=== PATIENT | female | born 1960 | race Caucasian/White ===

== ENCOUNTER 2018-05-03 15:10 | Emergency (ER) | payer MEDICAID, SELFPAY ==
--- NOTE | 2018-05-03 15:10 | DT_ITS ---
This patient was seen during an EMR downtime May 01, 2018 - May 08, 2018. This patient may have a combination of paper and electronic documentation or all paper documentation. All documentation is viewable within the e-chart portion of [facility] [employer] for each patient visit.
--- NOTE | 2018-05-03 17:22 | CT_ITS ---
STUDY: CT ABDOMEN AND PELVIS WITH CONTRAST REASON FOR EXAM: Female, 57 years old. Painless jaundice. RADIATION DOSAGE (If Supplied By Facility): CTDIvol = ( 12.55 ) mGy, DLP = ( 436.18 ) mGycm TECHNIQUE: Transaxial images were obtained from the dome of the diaphragm to the symphysis pubis without oral contrast. 100 ml of Isovue 300 contrast was administered. Sagittal and coronal images were reconstructed. Individualized dose optimization techniques were used for this CT. COMPARISON: Prior comparison studies are not available for review at this time. FINDINGS: The visualized lung bases are unremarkable. The visualized portions of the heart are within normal limits. There are dilated intrahepatic biliary ducts throughout the liver. There appears to be a mass within the antonina this probably causing the obstruction. The mass is difficult to define being somewhat infiltrative. The gallbladder is very distended probably also related to the portal mass. Normal spleen. Normal pancreas. Normal bilateral adrenal glands. Normal right kidney. Normal left kidney. Normal visualized stomach. There is no evidence for dilated bowel, ascites or pneumoperitoneum. There is very little solid stool in the colon with gaseous distention of the colon. There is non-visualization of the appendix. There is mild atherosclerotic calcification of the abdominal aorta, without a demonstrated aneurysm. There is venous distention of the inferior vena cava (IVC). Normal retroperitoneum. Normal urinary bladder. Normal visualized uterus. Normal abdominal wall. Normal osseous structures. CT/Abdomen/Pelvis WITH Contrast IMPRESSION: Dilated intrahepatic biliary ducts and very distended gallbladder secondary to a portal mass and/or lymphadenopathy. Electronically Signed: Julita Tong MD at 2:51 EDT , Service support ,
--- NOTE | 2018-05-03 17:40 | RAD_ITS ---
STUDY: X-RAY CHEST REASON FOR EXAM: Female, 57 years old. Jaundice and abdominal pain TECHNIQUE: PA and lateral views of the chest. COMPARISON: None. FINDINGS: There is nonspecific hyperinflation of the lungs. There are 3, 4 to 5 mm was circumscribed nodules in the right lower lobe suggesting old granulomatous disease and/or summation of shadows. There is no demonstrated pleural abnormality. Normal size heart. Normal mediastinum and gamaliel. Normal visualized pulmonary arteries. Normal visualized aortic arch and descending thoracic aorta. Normal visualized thoracic spine. Normal visualized ribs, clavicles, and shoulders. There is no demonstrated abnormality of the visualized soft tissue structures of the upper abdomen. RAD/Chest PA and Lateral IMPRESSION: Nonspecific hyperinflation of the lungs no evidence of acute focal infiltrate. Electronically Signed: Martha Oliver MD at 13:05 EDT Tel , Service support ,
[2018-05-06 08:14] LABS: BUN 10 mg/dL (7-18); Glucose 103 mg/dL (74-106)
[2018-05-06 08:15] LABS: AST(SGOT) 60 U/L (15-37); Alanine Aminotransfer ALT/SGPT 105 U/L (13-56); Albumin, Serum 3.1 g/dL (3.2-5.0); Alkaline Phosphatase 575 U/L (45-117); Anion Gap 9 (5-15); BUN/Creat Ratio 12.7 RATIO (10-20); Bilirubin, Direct 21.03 mg/dL (0.00-0.30); Calcium,Total 9.5 mg/dL (8.5-10.1); Chloride 106 mmol/L (98-107); Creatinine, Serum 0.79 mg/dL (0.55-1.02); EST Glomerular Filtration Rate 79 mL/min (>60); Est Glom Filt Rate - Afr Amer 96 mL/min (>60); Globulin 4.1 g/dL (2.2-4.2); Lipase 94 U/L (73-393); Potassium 3.4 mmol/L (3.5-5.1); Protein, Total 7.2 g/dL (6.4-8.2); Sodium Level 139 mmol/L (136-145)
[2018-05-06 09:48] LABS: Hematocrit 34.8 % (37-47); Hemoglobin 12.6 g/dl (12.0-15.0); Mean Corp Hgb Conc 36.2 g/gl (32-36); Mean Corpuscular Hgb 31.8 pg (27.0-32.0); Mean Corpuscular Volume 87.9 fL (81-99); RBC Distribution Width CV 16.6 % (11.6-14.6); Red Blood Count 3.96 M/mm3 (4.2-5.4); White Blood Count 6.4 K/mm3 (4.4-11.0)
[2018-05-06 09:49] LABS: Absolute Lymphocyte Count 1.17 X10^3/ul (0.83-4.51); Absolute Neutrophil Count 4.4 X10^3/uL (2.0-7.7); Basophil# 0.05 X10^3/uL; Basophil% 0.8 % (0-1); Eosinophil# 0.14 X10^3/uL; Eosinophils% 2.2 % (0-5); Lymphocyte # 1.17 X10^3/ul (4.0); Lymphocyte % 18.3 % (19-41); Mean Platelet Vol. 11.1 fl (6.2-12.0); Monocyte# 0.64 X10^3/uL; Neutrophil # 4.38 X10^3/uL (2.7-7.7); Neutrophil % 68.5 % (47-70); POSITIVE COUNT NO; POSITIVE DIFFERENTIAL NO; POSITIVE MORPHOLOGY NO; Platelet Count 415 K/mm3 (150-450); RBC Distribution Width SD 51.9 fl (35.1-43.9)
[2018-05-06 11:07] LABS: Color, Urine Orange (Yellow); Glucose, Dipstick NEGATIVE (Normal); Ketone-Dipstick 5 mg/dl (Negative); Leukocyte Esterase-Dipstick 25 /ul (Negative); Nitrite-Dipstick Negative (Negative); Occult Blood-Urine 10 /ul (Negative); Protein-Dipstick 30 mg/dl (Negative); Red Blood Cells-Urine 0-5 SEEN /hpf (0-5); Specific Gravity, Urine 1.015 (1.002-1.030); Squamous Epithelial Cells - UA 0-5 SEEN /hpf (5-10); Urine Bilirubin Dipstick 6 mg/dL (Negative); Urine Clarity Cloudy (Clear); Urine Urobilinogen 4 mg/dl (Normal); White Blood Cells 0-5 SEEN /hpf (0-5)
[2018-05-06 11:08] LABS: Bacteria 1+ /hpf (None Seen); Hyaline Cast 0-5 SEEN /lpf (0-5); Mucous, Urine RARE /hpf (<or=2+)
== END 2018-05-03 19:45 | disposition home or self-care (01) ==
LOC: ED 05-05 09:37
PROVIDERS: Emergency Provider Emergency Medicine; Family Provider Family Medicine; PCP Family Medicine
DX: R17 Unspecified jaundice (principal); K83.1 Obstruction of bile duct; F17.210 Nicotine dependence, cigarettes, uncomplicated
CPT/HCPCS: 36415; 71046; 74177; 80048; 80076; 81001; 83690; 85025; 96360; 96361; 99284; J7030; Q9967; A4216

== ENCOUNTER 2018-07-19 11:45 | Day surgery (SDC) | payer MEDICAID, SELFPAY ==
[2018-07-19 12:18] VITALS: BP 114/57; PULSE 59; RESP 18; TEMP 36.2; O2SAT 100; BMI 19.2
[2018-07-19] MEDS: Bupivacaine Mpf 0.5% 30 ML VIAL (12:59)
[2018-07-19] MEDS: Cefazolin 2 GM in 0.9% Normal Saline 100 ML IV (13:20)
--- NOTE | 2018-07-19 14:26 | PCM.OPRPT ---
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 Insertion of a right IJ Port-A-Cath. 2. Use of fluoroscopy. 3. Use of ultrasound Type of Anesthesia:: MAC Anesthesiologist: Dragan Campbell Special Medications: Ancef 2 g IV ?1 Specimen's removed: None Estimated Blood Loss (mL): < 10 cc Fluids Replaced: 800 cc Description of Procedure: After informed consent was given, the patient was brought to the operating room and placed in the supine position. Appropriate time out protocol was followed. He was then given IV conscious sedation for anesthesia. The patient's right upper chest and neck were then prepped with a surgical skin preparation and sterile surgical drapes were placed. After proper landmarks were ascertained, the skin at the upper right chest area was then infiltrated with 1:1 mixture of 1% lidocaine with epinephrine and 0.5% maricaine-total of 7.5 cc. A needle trocar was then inserted into the right internal jugular vein with ultrasound guidance-multiple vessels were viewed with u/s and the right IJ was chosen-- and there was good aspiration of venous blood. A wire was then threaded into the needle trocar and this was visualized under fluoroscopy to ensure that the wire was in the superior vena cava. Once this was done, then the needle trocar was removed. A small skin samanta was made with an 11 blade knife at the wire entrance site. The dilator with the introducer sheath attached was then placed over the wire into the right internal jugular vein via the Seldinger technique and this was visualized under fluoroscopy. The dilator and sheath were in proper position as visualized by fluoroscopy. A subcutaneous pocket was then created caudad to the catheter insertion site. A transverse skin incision was made after the skin and subcutaneous tissues were infiltrated with local anesthetic. Blunt dissection was then used to create a space large enough for placement of the subcutaneous port. The catheter was then tunneled into the subcutaneous pocket. The wire and dilator were then removed. The catheter was then threaded into the introducer sheath and was positioned with its tip at the junction of the superior vena cava and the right atrium as visualized under fluoroscopy. The excess catheter was transected. The catheter was then attached to the subcutaneous port using manufacturers guidelines. The catheter was flushed with a heparin saline mixture prior to placement. Hemostasis was carefully controlled with electrocautery. The port was sutured to the subcutaneous fascia using 3-0 PDS suture at two sites. The port was then placed in the subcutaneous pocket and the sutures were ligated. The incision were reapproximated with interrupted subdermal 3-0 vicryl sutures. The skin was reapproximated with 3-0 nylon suture in a interrupted fashion. Steristrips were used for reinforcement of the skin closure at IJ insertion site and a sterile opsite dressings were applied. The patient tolerated the procedure well. Implants Used: [employer]Port isp M.R.I. 6 Fr Lot [id number] Grafts/Implants Used: [employer] isp M.R.I. 6 Fr Lot [id number] - Complications none
--- NOTE | 2018-07-19 14:30 | PCM.DC.POR ---
Discharge Diet: No Restrictions May shower in (days): 5 - Please keep port site clean and dry for 5 days okay to get neck incision wet and remove dressing from neck incision tomorrow but keep dressing on port site for 5 days unless chemo was needed during this time. Lifting Restrictions: No lifting greater than 15 pounds for the first week on the right Call your doctor if your incision/area has: Continuous Slow Oozing, Sudden Increased Bleeding, Increased Pain/ Swelling, Increased Redness, Foul Smelling Discharge, Swelling at the incision site Call your doctor if you observe: Fever of 101 or Higher Remove Dressing in (days):: 5 - Keep port incision site clean dry and intact for 5 days and last chemo as needed during this time okay to remove and redressed, okay to remove neck dressing tomorrow. Allergies/Adverse Reactions: Allergies No Known Allergies Allergy (Verified 07/18/18 08:56) Medications to take at Discharge NK [NK] 07/17/18 Primary Care Physician: Care Physician,No Primary [Primary Care Provider] - Test Results: Test results from this visit will be discussed in further detail at your follow-up appointment, if applicable. Please Follow Up With: Beatrice Godinez MD - Call [phone] with any concerns after 5 PM or on the weekends When: Call the office for a follow-up appointment in 10 days for suture removal Proposed Discharge Date: 07/19/18
[2018-07-19 14:35] VITALS: BP 114/57; BP 91/52; PULSE 73; RESP 14; TEMP 36.8; O2SAT 100
[2018-07-19 14:40] VITALS: BP 101/58; BP 114/57; PULSE 69; RESP 14; O2SAT 100
[2018-07-19 14:45] VITALS: BP 114/57; BP 98/62; PULSE 75; RESP 16; O2SAT 100
[2018-07-19 14:51] VITALS: BP 114/57; BP 96/64; PULSE 70; RESP 14; TEMP 36.6; O2SAT 100
[2018-07-19 15:40] VITALS: BP 114/57
== END 2018-07-19 15:44 | disposition home or self-care (01) ==
LOC: SDC 11:46 → AC 11:47
PROVIDERS: Visit Provider Surgery
PROC: (CPT 36571; principal; 2018-07-19 13:00)
DX: C22.1 Intrahepatic bile duct carcinoma (principal); C77.9 Secondary and unspecified malignant neoplasm of lymph node, unspecified; Z45.2 Encounter for adjustment and management of vascular access device; F17.200 Nicotine dependence, unspecified, uncomplicated; R63.4 Abnormal weight loss; Z68.1 Body mass index [BMI] 19.9 or less, adult
CPT/HCPCS: 36571; 76937; 71045; 77001; J7120; C1788

== ENCOUNTER → 2018-07-21 13:32 | Outpatient (CLI) | payer MEDICAID, SELFPAY | PROVIDERS: Visit Provider Internal Medicine Hematology & Oncology | DX: C22.1 Intrahepatic bile duct carcinoma (principal); C77.9 Secondary and unspecified malignant neoplasm of lymph node, unspecified | CPT/HCPCS: 71260; 74177; Q9967; A4216 ==

== ENCOUNTER → 2018-10-20 15:37 | Outpatient (CLI) | payer MEDICAID, OTHER, SELFPAY ==
[2018-10-17 09:59] VITALS: BMI 20.5
--- NOTE | 2018-10-20 15:43 | CT_ITS ---
STUDY: CT ABDOMEN AND PELVIS WITH CONTRAST REASON FOR EXAM: Female, 58 years old. Bile duct cancer. RADIATION DOSAGE (If Supplied By Facility): CTDIvol = ( 9.53 ) mGy, DLP = ( 1271.53 ) mGycm TECHNIQUE: Transaxial images were obtained from the dome of the diaphragm to the symphysis pubis without oral contrast. 100 ml of Isovue 300 contrast was administered. Sagittal and coronal images were reconstructed. Individualized dose optimization techniques were used for this CT. COMPARISON: July 21, 2018 FINDINGS: The visualized lung bases are unremarkable. The visualized portions of the heart are within normal limits. There is stable pneumobilia. There is periportal edema. There is mild fluid inferior to the liver. The gallbladder is not visualized. There is a stent noted in the pancreas extending to the duodenum. Pancreatic duct measures 0.2 cm, similar to the prior study.. Normal spleen. There are small, 0.4 to 0.8 cm, nodular enhancing foci in the anterior aspect of the peritoneum adjacent to fluid with suggestion of regions of peritoneal spread of mass, series 3 images 46/125 through 48/125. Normal bilateral adrenal glands. Normal right kidney. Normal left kidney. Normal visualized stomach. Postoperative changes of loops of small intestine. There are no dilated loops present. Normal colon. There is moderate stool. The appendix is visualized and appears normal. There is diffuse atherosclerotic calcification of the abdominal aorta, without a demonstrated aneurysm. Normal inferior vena cava. Normal retroperitoneum. Normal urinary bladder. Normal visualized uterus. Postoperative changes of the abdominal wall. Normal osseous structures. CT/Abdomen/Pelvis W IV Cont ONLY IMPRESSION: Stable postoperative changes with pneumobilia. No dilated loops of bowel. There is periportal edema with fluid in the subhepatic region. Small soft tissue nodular masses with possible peritoneal carcinomatosis. Consider PET scan for further evaluation. Electronically Signed: Antonio Robles MD at 8:46 EST , Service support ,
--- NOTE | 2018-10-20 15:43 | CT_ITS ---
STUDY: CT CHEST WITH CONTRAST REASON FOR EXAM: Female, 58 years old. History of bile duct cancer RADIATION DOSAGE (If Supplied By Facility): CTDIvol = ( 9.53 ) mGy, DLP = ( 1271.53 ) mGycm TECHNIQUE: Transaxial imaging was performed following intravenous administration of 100 ml of Isovue 300 contrast material. Multiplanar coronal and sagittal images were reformatted. Individualized dose optimization techniques were used for this CT. COMPARISON: July 21, 2018 FINDINGS: There is port on the right extending to the superior vena cava. There are mild fibrotic densities about the periphery of the lungs. There is no dominant mass or infiltrate. There is no demonstrated pleural abnormality. There are calcifications of the coronary arteries. Normal mediastinum. Normal hilar regions. Normal enhanced pulmonary arteries. There is atherosclerotic calcification of the aortic arch . Normal osseous structures. There is stable pneumobilia noted in the right upper quadrant. CT/Chest WITH Contrast IMPRESSION: No acute cardiopulmonary disease. Stable appearance. Electronically Signed: Antonio Robles MD at 8:33 EST , Service support ,
== END ==
PROVIDERS: Referring Provider Internal Medicine Hematology & Oncology; Visit Provider Internal Medicine Hematology & Oncology
DX: C22.1 Intrahepatic bile duct carcinoma (principal); C25.9 Malignant neoplasm of pancreas, unspecified
CPT/HCPCS: 71260; 74177; Q9967

== ENCOUNTER → 2019-02-27 13:49 | Outpatient (CLI) | payer OTHER, SELFPAY ==
[2019-02-19 10:20] VITALS: BMI 20.5
--- NOTE | 2019-02-27 13:56 | CT_ITS ---
STUDY: CT CHEST WITH CONTRAST REASON FOR EXAM: Female, 58 years old. Restaging of cholangiocarcinoma. Prior cholecystectomy. RADIATION DOSAGE (If Supplied By Facility): CTDIvol = ( ) mGy, DLP = ( 674 ) mGycm TECHNIQUE: Transaxial imaging was performed following intravenous administration of 100ML IV Isovue 300. Sagittal and coronal 2-D MPR. Individualized dose optimization techniques were used for this CT. COMPARISON: CT chest 10/20/2018. FINDINGS: Supraclavicular: Normal. Body wall soft tissues: Normal. Osseous structures: No acute process. Mediastinum: Normal esophagus. No mass or lymphadenopathy. Aorta: Nondilated, minimal arch atherosclerosis. Pulmonary arteries: Normal. Heart: No cardiomegaly or pericardial effusion. Minimal coronary calcifications proximal LAD. Lungs: No acute process. Details of the upper abdomen are contained within the CT abdomen and pelvis report dictated today. CT/Chest WITH Contrast IMPRESSION: No acute thoracic abnormality is evident. Electronically Signed: Basil Keen MD at 16:37 EDT Tel , Service support ,
--- NOTE | 2019-02-27 13:57 | CT_ITS ---
STUDY: CT ABDOMEN AND PELVIS WITH CONTRAST REASON FOR EXAM: Female, 58 years old. Restaging cholangiocarcinoma. Cholecystectomy. RADIATION DOSAGE (If Supplied By Facility): CTDIvol = ( 8.96 ) mGy, DLP = ( 673.85 ) mGycm TECHNIQUE: Transaxial images were obtained from the dome of the diaphragm to the symphysis pubis with oral contrast. 100ML ml of Isovue 300 contrast was administered. Sagittal and coronal images were reconstructed. Individualized dose optimization techniques were used for this CT. COMPARISON: CT chest same date, CT chest 10/20/[address] abdomen and pelvis 10/20/2018, 07/24/2018, 07/21/2018. FINDINGS: Body wall soft tissues: No acute process. Osseous structures: No acute process. Inferior chest: No acute process. Hepatobiliary: Intrahepatic biliary ductal ectasia and pneumobilia, stable pattern compared to prior imaging of September 2018. Minimal edema within the portal triads. Mild induration of the fat of the gallbladder fossa. The gallbladder surgically absent. The hepatic duct and common bile duct are barely visible, nondilated. There is no defined mass within the liver or along the course of the biliary tree. Pancreas: Pancreatic duct stent. Minimal ductal ectasia of the pancreatic body and tail. No suspicious pancreatic lesion. Spleen: Normal. Adrenal glands: Normal. Urogenital: Normal kidneys with symmetric nephrograms. There is no left hydronephrosis or hydroureter. There is mild chronic-appearing ectasia of the right renal calyces, collecting system and proximal ureter. There is no visible obstructing lesion along the course of the right ureter. No evidence of calculus. Unremarkable urinary bladder. Uterus. No adnexal mass or cyst. Small amount of low density cul-de-sac free fluid. Pelvic floor and sidewalls and retroperitoneum: No mass or adenopathy. Vasculature: Mild atherosclerosis. Normal appearance of iliac veins, IVC, portal venous and mesenteric venous arborization, splenic vein. Stomach: No acute process. Small bowel and mesentery: No acute process. Large bowel: The appendix is not clearly visualized. There are no acute inflammatory features in the region of the cecum. There is a moderate distributed stool burden of the large bowel which may reflect mild constipation. There is mild circumferential thickening of the wall of the mid to distal sigmoid colon without acute inflammation of the surrounding fat, likely chronic. Normal rectum. Peritoneal wall, omentum, mesentery: Line just anterior to the hepatic flexure and proximal transverse colon, a few tiny enhancing nodular foci are present, probably within the omental fat but these directly abut the peritoneal wall. These have diminished in size and conspicuity compared to prior imaging. No new lesions are apparent. Free fluid or free air: Minimal free fluid in the deep pelvis. No generalized ascites. No free air. CT/Abdomen/Pelvis WITH Contrast IMPRESSION: Stable postsurgical changes. Tiny nodular opacities likely within the omentum adjacent to the transverse colon and hepatic flexure has diminished in size and conspicuity compared to prior imaging. No new mass or lymphadenopathy is apparent. There is mild right hydronephrosis and hydroureter of the proximal 3rd of the ureter. This has chronic features. The nephrograms are symmetric with no evidence of congestion of the right kidney. The point of transition into a nondilated ureter lies near the location of the ureteral traverse beneath and medial to the gonadal vein overlying the psoas muscle. Therefore the appearance of mild hydronephrosis may be associated with acute normal urine bolus at the time of the CT study. No suspicious ureteral lesion or calculus is evident. Electronically Signed: Basil Keen MD at 16:19 EDT Tel , Service support ,
== END ==
PROVIDERS: Referring Provider Nurse Practitioner Family; Visit Provider Nurse Practitioner Family
DX: C22.1 Intrahepatic bile duct carcinoma (principal); Z90.49 Acquired absence of other specified parts of digestive tract
CPT/HCPCS: 71260; 74177; Q9967

== ENCOUNTER → 2019-07-16 | Outpatient (CLI) | payer OTHER, SELFPAY ==
[2019-06-25 09:50] VITALS: BMI 23.0
[2019-07-09 09:46] VITALS: BMI 23.3
--- NOTE | 2019-07-16 13:32 | CT_ITS ---
STUDY: CT CHEST WITH CONTRAST REASON FOR EXAM: Female, 59 years old. Bile duct CA RADIATION DOSAGE (If Supplied By Facility): CTDIvol = ( 9.98 ) mGy, DLP = ( 648.68 ) mGycm TECHNIQUE: Transaxial imaging was performed following intravenous administration of 100 IV Isovue 300. Individualized dose optimization techniques were used for this CT. COMPARISON: None. FINDINGS: Bilateral pleural effusions with basilar atelectasis. There is no demonstrated pleural abnormality. Normal heart and pericardium. Subcentimeter nodes in the mediastinum. Normal hilar regions. Normal enhanced pulmonary arteries. Normal aorta arch and descending thoracic aorta. Normal osseous structures. Pneumobilia. CT/Chest WITH Contrast IMPRESSION: Bilateral pleural effusions with basilar atelectasis. Subcentimeter mediastinal nodes. Electronically Signed: Luis Alberto Rosales DO at 19:43 EDT Tel [phone], Service support ,
--- NOTE | 2019-07-16 13:32 | CT_ITS ---
STUDY: CT ABDOMEN AND PELVIS WITH CONTRAST REASON FOR EXAM: Female, 59 years old. Bile ducts CA RADIATION DOSAGE (If Supplied By Facility): CTDIvol = ( 9.98 ) mGy, DLP = ( 648.68 ) mGycm TECHNIQUE: Transaxial images were obtained from the dome of the diaphragm to the symphysis pubis without oral contrast. 100 IV Isovue 300 was administered. Sagittal and coronal images were reconstructed. Individualized dose optimization techniques were used for this CT. COMPARISON: None. FINDINGS: Pneumobilia in the liver. Nonvisualization of the gallbladder. No significant dilatation of the extrahepatic biliary system. Normal spleen. There is a pancreatic ductal stent in the pancreas. Borderline pancreatic ductal prominence. Normal bilateral adrenal glands. Normal right kidney. Normal left kidney. Normal visualized stomach. Focal wall thickening of the small intestine in the right upper quadrant. Normal colon. The appendix is nonvisualized. Calcified abdominal aorta. Normal inferior vena cava. Normal retroperitoneum. Mesenteric thickening is noted diffusely. Normal urinary bladder. There is moderate pelvic free fluid. There is a 2.5 cm thick wall left adnexal cystic lesion. Normal abdominal wall. Normal osseous structures. CT/Abdomen/Pelvis W IV Cont ONLY IMPRESSION: Focal wall thickening of a small bowel loop in the right upper quadrant. Mesenteric thickening diffusely. Moderate pelvic fluid. Thick-walled left adnexal cystic nodule. Pneumobilia. Pancreatic ductal stent. Borderline pancreatic ductal prominence. Electronically Signed: Luis Alberto Rosales DO at 20:31 EDT Tel [phone], Service support ,
== END | disposition home or self-care (01) ==
LOC: CT 13:24
PROVIDERS: Referring Provider Internal Medicine Hematology & Oncology; Visit Provider Internal Medicine Hematology & Oncology
DX: C22.1 Intrahepatic bile duct carcinoma (principal)
CPT/HCPCS: 71260; 74177; Q9967; A4216

== ENCOUNTER → 2019-08-24 | Outpatient (CLI) | payer OTHER, SELFPAY ==
[2019-08-20 10:21] VITALS: BMI 22.5
[2019-08-21 10:37] VITALS: BMI 22.5
--- NOTE | 2019-08-24 10:01 | US_ITS ---
STUDY: ABDOMINAL ULTRASOUND - RIGHT UPPER QUADRANT REASON FOR VISIT: Female, 59 years old right upper quadrant pain, nausea TECHNIQUE: Ultrasound evaluation of the right upper quadrant was performed with real-time and static noriega-scale imaging. TECHNICAL QUALITY: Adequate. COMPARISON: CT scan from 07/16/2019 FINDINGS: Liver: The liver measures 14.1 cm. There is normal echogenicity of the liver. The bile ducts are within normal limits. There is hepatic color flow. The direction of portal flow is hepatopetal. There is no demonstrated mass lesion. There is evidence of pneumobilia, unchanged from the previous CT Gallbladder: The patient is status post cholecystectomy. Common Bile Duct (C.B.D.): The common bile duct measures 5 mm. Biliary stent not well visualized. Pancreas: Normal size of the head, body and tail of the pancreas. There is normal echogenicity of the pancreas. There is no demonstrated pancreatic mass or cyst. Right Kidney: Normal size of the right kidney. The right kidney measures 10.7 x 5.7 x 5.6 cm. Normal renal cortex. The right cortex measures 1.6 cm. There is no demonstrated renal mass or cyst. There is no right hydronephrosis. US/Abdomen Limited IMPRESSION: Liver is sonographically unremarkable, stable pneumobilia. Biliary stent not well identified, there has been a previous cholecystectomy Sonographically normal pancreas and right kidney Electronically Signed: Johnny Dela Cruz MD at 11:11 EDT , Service support ,
== END | disposition home or self-care (01) ==
LOC: US 09:59
PROVIDERS: Referring Provider Internal Medicine Hematology & Oncology; Visit Provider Internal Medicine Hematology & Oncology
DX: E80.6 Other disorders of bilirubin metabolism (principal); C22.1 Intrahepatic bile duct carcinoma
CPT/HCPCS: 76705

== ENCOUNTER 2019-09-20 07:59 | Emergency (ER) | payer OTHER, SELFPAY ==
[2019-09-03 10:32] VITALS: BMI 22.6
[2019-09-20] VITALS (24 sets, daily range): BP systolic 85–191; BP diastolic 65–116; PULSE 63–128; RESP 11–18; TEMP 34.4–35.9; O2SAT 94–100; BMI 22.7
[2019-09-20] MEDS: Rocuronium Bromide 50 MG/5 ML Vial 100 MG IV (08:07)
--- NOTE | 2019-09-20 08:11 | EKG12_ITS ---
Test Reason : UNRESPONSIVE Blood Pressure : / mmHG Vent. Rate : 077 BPM Atrial Rate : 077 BPM P-R Int : 158 ms QRS Dur : 086 ms QT Int : 468 ms P-R-T Axes : 078 -44 047 degrees QTc Int : 529 ms Normal sinus rhythm Left axis deviation Prolonged QT Abnormal ECG Confirmed by SAEID KIMBLE, WILMA ([id number]), editorial writer ERICA SCANLON ([id number]) on 09/24/2019 10:51:50 AM Referred By: Marquez Hull Confirmed By:WILMA BREAUX MD
--- NOTE | 2019-09-20 08:11 | RAD_ITS ---
STUDY: X-RAY CHEST REASON FOR EXAM: Female, 59 years old. Unresponsive. Patient has history of pancreatic carcinoma. TECHNIQUE: Single AP portable view of the chest. COMPARISON: Comparison is made with prior examination dated May 03, 2018. FINDINGS: An endotracheal tube is in situ. The tip is at 3.6 cm proximal to the oswaldo. The orogastric tube is seen within the body of the stomach. A right-sided portacatheter is seen with the tip at the junction of the superior vena cava and right atrium. Is evidence of a left lower lobe consolidation with a small left pleural effusion. The right lung is clear. Normal size heart. Normal mediastinum and gamaliel. Normal visualized pulmonary arteries. Normal visualized aortic arch and descending thoracic aorta. Normal visualized thoracic spine. Normal visualized ribs, clavicles, and shoulders. There is no demonstrated abnormality of the visualized soft tissue structures of the upper abdomen. RAD/Chest 1 View (Portable) IMPRESSION: Left lower lobe consolidation with a small left pleural effusion. The tip of the endotracheal tube is at 3.6 cm proximal to the oswaldo. The tip of the orogastric tube is in the body of the stomach. Electronically Signed: Pancho Meadows, at 8:50 EDT , Service support ,
--- NOTE | 2019-09-20 08:12 | CT_ITS ---
STUDY: CT BRAIN WITHOUT CONTRAST REASON FOR EXAM: Female, 59 years old. Altered mental status. The patient was found unresponsive. History of pancreatic carcinoma. RADIATION DOSAGE (If Supplied By Facility): CTDIvol = ( 44.99 ) mGy, DLP = ( 762.36 ) mGycm TECHNIQUE: Transaxial CT imaging of the brain was performed without administration of intravenous contrast material. Individualized dose optimization techniques were used for this CT. COMPARISON: No relevant priors. FINDINGS: Normal soft tissue structures. Normal calvarium. Normal size ventricles and extra-axial spaces for the patient's age. There is a 1.2 cm x 1 cm rounded hypodensity in the medial aspect of the left occipital lobe. Linear increased attenuation is seen in the superior aspect of the left frontal parietal lobe suggestive of possible either contusion or focal subarachnoid hemorrhage. Inhomogeneous appearance of the white matter in the periventricular distribution of both cerebral hemispheres. Images appearance of the lateral aspect of the left occipital posterior parietal lobes. Correlation with enhanced CT scan or MRI scan is recommended for further evaluation. Normal basal ganglia and thalami. Normal brainstem. Normal cerebellum. There is no intracranial hemorrhage. Normal visualized paranasal sinuses. CT/Brain/Head without Contrast IMPRESSION: Multiple changes as described above. Correlation with enhanced CT scan of the brain or MRI scan is recommended for further evaluation. Electronically Signed: Pancho Meadows, at 9:51 EDT , Service support ,
[2019-09-20] MEDS: 0.9% Normal Saline 1,000 ML 999 ML IV ×2 (08:15→08:47)
[2019-09-20] MEDS: Propofol 10MG/Ml 1,000 MG/100 ML Bottle 4.3 MG CONT INF (08:15)
--- NOTE | 2019-09-20 08:30 | ED.DCSUM_ITS ---
History of Present Illness Chief Complaint: Alt LOC Informant: Family, Wedding Planning Internship Limited by: Stupor Onset: Today Narrative: Patient is a 59-year-old female with stage IV pancreatic cancer currently not on chemotherapy with a 6-month prognosis presenting with respiratory failure. Family found the patient on the side of her bed this morning obtunded with agonal respirations. They immediately called 911. EMS arrived stated patient had a respiratory rate of 2. They supported ventilation with Ambu bag for approximately 7 minutes and patient had return of spontaneous respirations. Patient had a normal blood pressure and was tachycardic per EMS. When patient arrived to the ER she was stuporous. Family later arrived and states that she seemed fine yesterday and the last saw her at 1 AM. She did take NyQuil for the first time because she was having a hard time sleeping. She was not complaining of anything yesterday but they note that is common for her to keep an illness to herself. Family states that she would not want chest compressions or long-term intubation. 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 Past Medical History - Allergies and Home Meds Allergies/Adverse Reactions: Allergies oxaliplatin Allergy (Severe, Verified 09/03/19 10:32) Shortness of breath Primary Care Physician: Care Physician,No Primary [Primary Care Provider] - Past Medical History: - - Stage IV pancreatic cancer, Cholangiocarcinoma, anemia Surgical History: dilatation and curettage Lives: With Family Smoking Status: Former smoker - Family History Maternal Family History: Family History (Last Reviewed 09/20/19 @ 12:34 by Marquez Hull MD) Father Diabetes Grandmother Diabetes Brother Diabetes Review of Systems ROS: Unable to Obtain - Obtunded, critical illness Physical Exam Vital Signs/Narrative: Vital Signs Temp Pulse Resp BP Pulse Ox 09/20/19 08:00 97 F L 128 H 17 191/116 H 96 Inital Vital Signs reviewed: Yes - Tachycardic and hypertensive General: Well nourished, Well developed, Acute Distress Head: Normocephalic, Atraumatic Eyes: Perrl, EOMI ENT: Dry mucous membranes, - - Erythema at the tip of the tongue, multiple cracked and missing teeth Neck: Supple, Nontender, No JVD, - - No instability appreciated Cardiovascular: Regular rhythm, No murmurs, Tachycardia Respiratory: - - Diminished respiratory drive with intermittent obstructive apnea, clear breath sounds Abdomen: Soft, Nontender, Nondistended Extremities: Nontender, No edema Skin: Normal color, No rash Neurological: - - Obtunded, patient moving all extremities, withdraws from pain GCS 10 Diagnostic/Tx/Re-eval Chest X-Ray - ED: 1 View, Read by ED Physician, No Acute Disease, - - Inflated, ET tube in appropriate position - Rhythm Strip Rhythm Strip: Sinus Rhythm Rate: 77 Ectopy: None - EKG Initial EKG Interpretation: Sinus Rhythm, - - Normal sinus rhythm at a rate of 77 Normal [place] and QRS interval QTc 529 Left axis deviation Normal ST segments - Medical Decision Making Patient arrives in respiratory distress. She is not protecting her airway even though her oxygen saturation was 95%. Decision was made to emergently intubate the patient. See procedure note. Report from EMS was that patient was a full code. Patient is found to have multiple medical conditions including a possible small subarachnoid hemorrhage, lactic acidosis, left lower lobe pneumonia, acute kidney injury and encephalopathy. Initially family is agreeable with no CPR should she decompensate. Patient remains hemodynamically stable in the bed. She is given 2 L of fluid. She does not require propofol for sedation was intubated. Initially patient's family is requesting transfer to [facility] for further evaluation of possible subarachnoid hemorrhage. Patient is accepted by Dr. Sims in the neuro ICU. Before a bed becomes available, the family states that they would like to switch her to hospice. States that she is previously verbalized that she is tired of living with her cancer and just wants to be at rest. Given patient's multiple comorbidities I do feel that this is appropriate. Patient is made DNR hotel sales manager. Family is aware that she will likely quickly after extubation. She will be admitted to [facility] however she will be extubated prior to going upstairs. Almost immediately after extubation patient becomes bradycardic and hypoxic. She is not able to protect her airway. Patient developed agonal breathing. She is given 2 mg of IV morphine to help with any discomfort associated with this. Time of was called at 1247. Family is at the bedside. - Critical Care Time Critical care time (excluding procedures): 30-74 minutes - 45 minutes for extended discussions with family as well as initially arranging transportation and menorrhagia hospice care for patient as well as terminal extubation. Procedures Procedure(s): Intubation-performed emergently secondary to intermittent apnea and inability to protect airway. Patient preoxygenated up to 100%. IV ketamine and then rocuronium injected. #4 MAC blade used for direct visualization. 7.5 ET tube passed on first attempt. Patient had equal breath rise, condensation, bilateral equal breath sounds and capnography changes. Chest x-ray confirms ET tube placement. No immediate complications. ED Disposition - Plan for ED Patient: Disposition: Diagnosis: Respiratory failure, Lactic acidosis, Pneumonia, Acute kidney injury Referrals: Care Physician,No Primary [Primary Care Provider] -
--- NOTE | 2019-09-20 08:37 | CT_ITS ---
STUDY: CT CERVICAL SPINE WITHOUT CONTRAST REASON FOR EXAM: Female, 59 years old. Altered mental status. The patient was found unresponsive. History of pancreatic carcinoma. RADIATION DOSAGE (If Supplied By Facility): CTDIvol = ( 20.21 ) mGy, DLP = ( 432.78 ) mGycm TECHNIQUE: High resolution transaxial imaging was performed without contrast material. Sagittal and coronal images were reconstructed. Individualized dose optimization techniques were used for this CT. COMPARISON: None FINDINGS: Normal craniovertebral junction. There are degenerative changes of the anterior atlantoaxial articulation. Normal odontoid process. An endotracheal tube is seen in situ. An orogastric tube is seen in situ as well. Normal cervical lordosis. Normal vertebral bodies and posterior osseous elements. C2-3: Normal endplates. Normal disc height and morphology. Normal central canal and intervertebral neuroforamina. C3-4: Normal endplates. Normal disc height and morphology. Normal central canal and intervertebral neuroforamina. C4-5: Normal endplates. Normal disc height and morphology. Normal central canal and intervertebral neuroforamina. C5-6: Mild degree of the disc space narrowing. Uncovertebral arthrosis. Mild bilateral neural foraminal stenosis worse on the left side. C6-7: Normal endplates. Normal disc height and morphology. Normal central canal and intervertebral neuroforamina. C7-T1: Normal endplates. Normal disc height and morphology. Normal central canal and intervertebral neuroforamina. Normal visualized soft tissue structures. CT/Spine Cervical without Contras IMPRESSION: Multilevel degenerative changes, as described above. Electronically Signed: Pancho Meadows, at 9:52 EDT , Service support ,
[2019-09-20 08:42] LABS: Bacteria 0 SEEN /hpf (None Seen); Mucous, Urine 0 SEEN /hpf (<or=2+); White Blood Cells 0 SEEN /hpf (0-5)
[2019-09-20 08:50] LABS: Absolute Lymphocyte Count 1.81 X10^3/uL (0.83-4.51); Absolute Neutrophil Count 5.1 X10^3/uL (2.0-7.7); Basophil# 0.03 X10^3/uL; Basophil% 0.4 % (0-1); Eosinophil# 0.09 X10^3/uL; Eosinophils% 1.2 % (0-5); Hematocrit 25.7 % (37-47); Hemoglobin 8.1 g/dL (12.0-15.0); Lymphocyte # 1.81 X10^3/ul (4.0); Lymphocyte % 23.3 % (19-41); Mean Corp Hgb Conc 31.5 g/dL (32-36); Mean Corpuscular Hgb 34.8 pg (27.0-32.0); Mean Corpuscular Volume 110.3 fL (81-99); Mean Platelet Vol. 10.9 fl (6.2-12.0); Monocyte# 0.42 X10^3/uL; Monocyte% 5.4 % (0-10); NRBC Flagged by Analyzer 0 % (0-5); Neutrophil # 5.05 X10^3/uL (2.7-7.7); Neutrophil % 64.9 % (47-70); POSITIVE MORPHOLOGY YES; Platelet Count 194 K/mm3 (150-450); RBC Distribution Width CV 18.6 % (11.6-14.6); RBC Distribution Width SD 74.6 fl (35.1-43.9); Red Blood Count 2.33 M/mm3 (4.2-5.4); White Blood Count 7.8 K/mm3 (4.4-11.0)
[2019-09-20 08:52] LABS: Differential Indicated SCAN CRITERIA MET
[2019-09-20 08:58] LABS: Color, Urine Yellow (Yellow); Glucose, Dipstick Normal (Normal); Ketone-Dipstick 5 mg/dl (Negative); Leukocyte Esterase-Dipstick Negative /ul (Negative); Nitrite-Dipstick Negative (Negative); Occult Blood-Urine 250 /ul (Negative); Protein-Dipstick 500 mg/dl (Negative); Urine Bilirubin Dipstick Negative (Negative); Urine Clarity Sl. Cloudy (Clear); Urine Urobilinogen 1 mg/dl (Normal)
[2019-09-20 08:59] LABS: Red Blood Cells-Urine 25-50 SEEN /hpf (0-5); Squamous Epithelial Cells - UA 0-5 SEEN /hpf (5-10)
[2019-09-20 09:00] LABS: Allen Test POS; Base Excess -16 mmol/L (-2 to +2); Bicarbonate 11.6 mmol/L (22-26); Blood Gas Specimen Type ART; FI02 70; Mode A-C; O2 Delivery Device Vent; PEEP 5; PO2 117 mmHG (75-100); RR 16; SITE L Radial; SO2 98 % (95-99); Time Given 845; Total Carbon Dioxide 12 mmol/L; Vt 450; pCO2 27.7 mmHg (35-45); pH 7.23 (7.35-7.45)
[2019-09-20 09:00] LABS: Amorphous Sediment 2+ URATE
[2019-09-20 09:04] LABS: International Normalized Ratio 1.6; Prothrombin Time (Protime)PT. 18.8 SECONDS (11.7-14.9)
[2019-09-20 09:25] LABS: Anisocytosis 1+; Crenated RBC 1+; Lactic Acid 10.5 mmol/L (0.4-2.0)
[2019-09-20 09:29] LABS: ALB/GLOB Ratio 0.8 RATIO (0.9-2.4); AST(SGOT) 43 U/L (15-37); Alanine Aminotransfer ALT/SGPT 33 U/L (13-56); Albumin, Serum 2.5 g/dL (3.2-5.0); Alkaline Phosphatase 338 U/L (45-117); Anion Gap 21 (5-15); BUN 37 mg/dL (7-18); BUN/Creat Ratio 14.6 RATIO (10-20); Calcium,Total 7.9 mg/dL (8.5-10.1); Chloride 114 mmol/L (98-107); Creatinine, Serum 2.53 mg/dL (0.55-1.02); EST Glomerular Filtration Rate 21 mL/min (>60); Est Glom Filt Rate - Afr Amer 25 mL/min (>60); Estimated Creatinine Clearance 21.86 ml/min; Globulin 3.2 g/dL (2.2-4.2); Glucose 157 mg/dL (74-106); Potassium 3.7 mmol/L (3.5-5.1); Protein, Total 5.7 g/dL (6.4-8.2); Salicylate < 1.7 mg/dL (2.8-20.0); Sodium Level 144 mmol/L (136-145)
[2019-09-20 09:59] LABS: Amphetamine Urine VISTA NEGATIVE (<1000 ng/mL); Barbiturate Urine VISTA NEGATIVE (< 200 ng/mL); Benzodiazepine Urine VISTA NEGATIVE (< 200 ng/mL); Cocaine Urine VISTA NEGATIVE (< 300 ng/mL); Ecstacy Urine VISTA NEGATIVE (< 500 ng/mL); Methadone Urine VISTA NEGATIVE (< 300 ng/mL); PCP Urine VISTA NEGATIVE (< 25 ng/mL); THC Urine VISTA NEGATIVE (< 50 ng/mL); Vista UDS pH Range 5
[2019-09-20] MEDS: Ceftriaxone 1 GM/50 ML BAG IV (11:20)
--- NOTE | 2019-09-20 12:23 | CPS ---
Patient was extubated a 1221 by this RT. Patient on RA Spo2 94 HR 64. Shasha
--- NOTE | 2019-09-20 12:32 | PCM.HP.STD ---
Problem List (1) Anemia Status: Chronic (2) Neutropenia Status: Acute (3) Chemotherapy management, encounter for Status: Acute (4) Peritoneal carcinomatosis Status: Chronic (5) Chemotherapy induced neutropenia Status: Chronic (6) PORT PLACEMENT RT CHEST Status: Chronic (7) Cholangiocarcinoma Status: Chronic (8) Regional lymph node metastasis present Status: Chronic (9) Educational circumstance Status: Chronic (10) Cholangiocarcinoma Status: Chronic Comment: (HCC) (11) Malignant neoplasm of pancreas Status: Chronic Comment: (HCC) (12) Obstructive jaundice Status: Chronic (13) History of dilation and curettage Status: Chronic (14) CHOLANGIOSCOPY VIA PERCUTANEOUS DRAIN Status: Chronic (15) Acute respiratory failure with hypoxemia Status: Acute History of Present Illness Date of Admission: 09/20/19 Chief Complaint: Unresponsiveness The patient is a 59 year old F with past medical history sent in for stage IV pancreatic CA was found unresponsive on the morning of her admission. Patient was reported to be having gone her breathing the EMS called patient transported to the emergency department in the ED patient was intubated however after family discussion decision was made to terminally extubate patient patient made comfort care and admitted to regular nursing floor for symptom management. Past Medical History Past Medical History (Chronic Problems): Chronic Problems (Last Reviewed 09/20/19 @ 12:34 by Marquez Hull MD) Anemia (Chronic) Peritoneal carcinomatosis (Chronic) Chemotherapy induced neutropenia (Chronic) PORT PLACEMENT RT CHEST (Chronic) Cholangiocarcinoma (Chronic) Regional lymph node metastasis present (Chronic) Educational circumstance (Chronic) Cholangiocarcinoma (Chronic) (HCC) Malignant neoplasm of pancreas (Chronic) (HCC) Obstructive jaundice (Chronic) History of dilation and curettage (Chronic) CHOLANGIOSCOPY VIA PERCUTANEOUS DRAIN (Chronic) Medical History: Medical History (Last Reviewed 09/03/19 @ 10:31 by Talya Bartholomew) Cholangiocarcinoma (Chronic) C22.1 (HCC) Malignant neoplasm of pancreas (Chronic) C25.9 (HCC) Obstructive jaundice (Chronic) K83.8 Allergies oxaliplatin Allergy (Severe, Verified 09/03/19 10:32) Shortness of breath Home Medications: Ambulatory Orders Medication Instructions Recorded Lidocaine/Prilocaine 30 gm TP DAILY PRN PRN #1 cream..g. 07/20/18 [Lidocaine-Prilocaine Cream] Ondansetron HCl [Zofran] 4 mg PO Q8H PRN PRN #30 tab 07/20/18 Surgical History: Surgical History (Last Reviewed 09/20/19 @ 12:34 by Marquez Hull MD) PORT PLACEMENT RT CHEST (Chronic) History of dilation and curettage (Chronic) Z98.890 CHOLANGIOSCOPY VIA PERCUTANEOUS DRAIN (Chronic) Surgical History: dilatation and curettage Lives: With Family Smoking Status: Former smoker - *Family History Maternal Family History: Family History (Last Reviewed 09/20/19 @ 12:34 by Marquez Hull MD) Father Diabetes Grandmother Diabetes Brother Diabetes Review of Systems Unable to obtain accurate/complete ROS d/t: Patient barely responsive VTE Information - Inpt Only VTE Present on Admission: No VTE Mechan Device Prophylaxis: None VTE Pharm Prophylaxis ordered?: No Reason prophylaxis not ordered:: Palliative Care, Treatment Not Indicated Patient Problems: Active and Suspected Problems (Last Reviewed 09/03/19 @ 10:31 by Talya Bartholomew) Acute respiratory failure with hypoxemia (Acute) Objective: GENERAL: opens eyes to deep sternal rub HEENT: Atraumatic; EYES; icteric, NECK; supple, normal thyroid, RESPIRATORY: Diminished to auscultation CARDIOVASCULAR: Regular S1 S2, GI: soft, normoactive bowel sounds, : No Renal angle tenderness; EXTREMITIES: No edema, no clubbing, MUSCULOSKELETAL: muscle waisting NEURO: opens eyes to deep sternal rub SKIN: Jaundiced - Physical Exam Vitals/I&O's: Vital Signs Temp Pulse Resp BP Pulse Ox 96.6 F L 69 13 136/86 H 100 09/20/19 11:51 09/20/19 12:21 09/20/19 12:21 09/20/19 12:21 09/20/19 12:21 Oxygen Delivery Method Mechanical Ventilator Weight: 64 kg Body Mass Index (BMI) 22.7 Intake and Output for Last 24 Hours 09/18/19 09/19/19 09/20/19 23:59 23:59 23:59 Intake Total 1689.02 / 1689.02 Balance 1689.02 / 1689.02 Laboratory Results 09/20/19 08:15: WBC 7.8, RBC 2.33 L, Hgb 8.1 L, Hct 25.7 L, MCV 110.3 H, MCH 34.8 H, MCHC 31.5 L, RDW Std Deviation 74.6 H, RDW Coeff of Nico 18.6 H, Plt Count 194, MPV 10.9, Immature Gran % (Auto) 4.800 H, Neut % (Auto) 64.9, Lymph % (Auto) 23.3, [place] % (Auto) 5.4, Eos % (Auto) 1.2, Baso % (Auto) 0.4, Absolute Neuts (auto) 5.1, Absolute Lymphs (auto) 1.81, Nucleated RBC % 0, Anisocytosis 1+, Crenated Cell 1+ 09/20/19 08:15: PT 18.8 H, INR 1.6, APTT 40.0 H 09/20/19 08:15: Sodium 144, Potassium 3.7, Chloride 114 H, Carbon Dioxide 9.0 L*, Anion Gap 21 H, BUN 37 H, Creatinine 2.53 H, Estim Creat Clear Calc 21.86, Est GFR (MDRD) Af Amer 25 L, Est GFR (MDRD) Non-Af 21 L, BUN/Creatinine Ratio 14.6, Glucose 157 H, Calcium 7.9 L, Total Bilirubin 1.40 H, AST 43 H, ALT 33, Alkaline Phosphatase 338 H, Troponin I 0.072 H, Total Protein 5.7 L, Albumin 2.5 L, Globulin 3.2, Albumin/Globulin Ratio 0.8 L 09/20/19 08:15: Lactic Acid 10.5 H* 09/20/19 08:15: Salicylates < 1.7 L, Acetaminophen 2.0 L 09/20/19 08:25: Urine Color Yellow, Urine Clarity Sl. Cloudy, Urine pH 5.0, Ur Specific [place] 1.020, Urine Protein 500 H, Urine Glucose (UA) Normal, Urine Ketones 5 H, Urine Occult Blood 250 H, Urine Nitrite Negative, Urine Bilirubin Negative, Urine Urobilinogen 1 H, Ur Leukocyte Esterase Negative, Urine RBC 25-50 SEEN, Urine WBC 0 SEEN, Ur Squamous Epith Cells 0-5 SEEN, Amorphous Sediment 2+ URATE, Urine Bacteria 0 SEEN, Urine Mucus 0 SEEN 09/20/19 08:25: Urine Opiates Screen NEGATIVE, Urine Methadone Screen NEGATIVE, Ur Barbiturates Screen NEGATIVE, Ur Phencyclidine Scrn NEGATIVE, Ur Amphetamines Screen NEGATIVE, U Methamphetamin-MDMA NEGATIVE, U Benzodiazepines Scrn NEGATIVE, Urine Cocaine Screen NEGATIVE, U Cannabinoids Screen NEGATIVE, Ur Drug Screen Comment 09/20/19 08:57: Specimen Type ART, Sample Site L Radial, pH 7.23 L, Bicarbonate Actual 11.6 L, POC Total CO2 12, Base Excess -16 L, O2 Saturation 98, O2 % 70, ABG pCO2 27.7 L, ABG pO2 117 H, Yunior Test POS, Respiration Rate 16, O2 Delivery Device Vent, Vent Mode A-C, Tidal Volume 450, POC PEEP 5, Blood Gas Notified Whom ED MD, Blood Gas Notified Time 845 Current Medications Acetaminophen (Tylenol) 650 mg RECTAL Q4H PRN PRN PRN Reason: Temp>101F or Pain Score 1-10 Acetaminophen (Tylenol Liquid) 650 mg PO Q4H PRN PRN PRN Reason: Temp>101F or Pain Score 1-10 Al Hydroxide/Mg Hydroxide (Mylanta Ii) 30 ml PO Q4H PRN PRN PRN Reason: Epigastric Distress Atropine Sulfate (Atropisol) 4 drop PO Q3H PRN PRN PRN Reason: Congestion Diphenhydramine HCl (Benadryl) 25 mg PO Q4H PRN PRN PRN Reason: Extrapyridimal Spasm/Itching Guaifenesin (Robitussin) 10 - 20 ml PO Q4H PRN PRN PRN Reason: Productive Cough Guaifenesin (Robitussin Dm) 5 - 10 ml PO Q4H PRN PRN PRN Reason: Non-Productive Cough Haloperidol (Haldol) 1 mg PO Q2H PRN PRN PRN Reason: Opioid Induced Nausa/Vomiting Haloperidol (Haldol) 1 mg PO BIDCM LUAN Propofol (Diprivan) 1,000 mg in 100 mls @ 4.272 mls/hr CONT INF .Q12H LUAN; Protocol Last Titration: 09/20/19 12:20 Dose: Infused Documented by: Ibuprofen (Motrin Liquid) 400 - 600 mg PO Q4H PRN PRN PRN Reason: Bone or Musculoskeletal Pain Loperamide HCl (Imodium) 2 mg PO UD PRN PRN Reason: After each liquid stool Lorazepam (Ativan) 0.5 mg SL/PO Q3H PRN PRN PRN Reason: Restlessness/Anxiety Promethazine HCl (Phenergan Tablet) 12.5 mg PO Q6H PRN PRN PRN Reason: UNSPECIFIED NAUSEA/VOMITING Assessment/Plan All Active Problems (Last Reviewed 09/03/19 @ 10:31 by Talya Bartholomew) Acute respiratory failure with hypoxemia (Acute) Neutropenia (Acute) Chemotherapy management, encounter for (Acute) Patient is a 59-year-old lady with metastatic pancreatic cancer brought to the hospital after she was found unresponsive patient was found to have multiorgan failure intubated and subsequently extubated in the ED after she was made comfort care admitted to regular nursing floor for symptom management Assessment 1. 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 Septic shock secondary to pneumonia possibly from aspiration pneumonia and acute cystitis 3. Acute renal failure 4. Metabolic acidosis 5. Acute hypoxic respiratory failure 6. Frontal left frontal parietal cerebral hemorrhage 7. Anemia secondary to anemia of malignancy 8. Elevated troponin secondary to non-STEMI type II from demand ischemia from above Plan; Patient admitted to regular nursing floor with patient currently experiencing multiorgan failure decision was made to terminally wean patient off the vent from the intensive care unit. Subsequently admitted to regular nursing floor where patient is to undergo symptom management Prognosis; poor Advance planning; did discuss with the patient's condition with her and 2 daughters regarding her current status and prognosis and CODE STATUS. CODE STATUS. Did explain the various scenarios involved ( FULL CODE, DNR CCA, DNR CCA with no intubation, and DNR CC and what each meant) patient elected to be DNR CC; quested for terminal weaning of the vent No intubation. Time spent on discussion 25 minutes. Clinical Impression(s) from Imaging Studies Chest X-Ray 09/20/19 08:11 IMPRESSION: Left lower lobe consolidation with a small left pleural effusion. The tip of the endotracheal tube is at 3.6 cm proximal to the oswaldo. The tip of the orogastric tube is in the body of the stomach. Electronically Signed: Pancho Meadows, at 8:50 EDT , Service support , Brain CT 09/20/19 08:12 IMPRESSION: Multiple changes as described above. Correlation with enhanced CT scan of the brain or MRI scan is recommended for further evaluation. Electronically Signed: Pancho Meadows, at 9:51 EDT , Service support , Cervical Spine CT 09/20/19 08:37 IMPRESSION: Multilevel degenerative changes, as described above. Electronically Signed: Pancho Meadows, at 9:52 EDT , Service support , Code Visit OBSV E&M: 97814 Initial observation care L3 Procedures: 79215 Advncd Care Plan 30 Min
[2019-09-20] MEDS: Morphine 2 MG/ML Syringe IV (12:35)
--- NOTE | 2019-09-20 12:40 | ED.RN ---
Addendum entered by Jay Lehman 09/20/19 12:45: RESPIRATORY AND ED DR CALLED BACK TO BEDSIDE. FAMILY ALSO BROUGHT BACK INTO THE ROOM DUE TO REQUEST TO BE THERE WHEN SHE PASSES. PT WAS GIVEN 2 MG IV MORPHINE UNDER VERBAL ORDER OF ED DR. CHOE CALLED PER FAMILIES REQUEST. Original Note: PT EXTIBATED FROM ET-TUBE AT 1221. PT VITALS RAPIDLY DECLINED. RESPRITORY AR
[2019-09-20 12:41] LABS: Reflex Lactate? Y
--- NOTE | 2019-09-20 14:11 | CHAPLAIN ---
Type of Pastoral Visit ___ Initial Visit ___ Follow-up Visit ___ On-call Visit ___ General Patient Visit ___ Spiritual Assessment ___ Family Conference _x__ Bereavement ___ Rapid Response ___ Code Blue ___ Other (describe below) Pastoral Care Referral From ___ Patient _x__ Family _x__ Nurse ___ Physician ___ Water Resource Engineering Specialist ___ Supervisor Finishing ___ Other (describe below) Sacrament/Intervention ___ Active listening ___ Anointing ___ Anglican _x__ Bereavement ___ Communion ___ Sydni exploration ___ ___ Life review _x__ Prayer ___ Reconciliation ___ Sacrament of Sick _x__ Supportive presence ___ Wedding ___ Other (describe below) Pastoral Comments this digital content coordinator was called to ED for family as patient was actively dying; spouse requests prayer and receives support; two daughters are also in room; pt pronounced moments after arrival of digital content coordinator; gave time for family to talk about patient; family seeks information about homes and how to proceed which is given to them; alerted RN and SW of situation for possible assistance with this decision
== END 2019-09-20 14:34 ==
LOC: ED 08:32 → MS3 12:36 → ED 13:05
PROVIDERS: Emergency Provider Emergency Medicine; Referring Provider Internal Medicine
DX: J96.90 Respiratory failure, unspecified, unspecified whether with hypoxia or hypercapnia (principal); E87.2 Acidosis; N17.9 Acute kidney failure, unspecified; J18.9 Pneumonia, unspecified organism; C25.9 Malignant neoplasm of pancreas, unspecified
CPT/HCPCS: 31500; 36600; 70450; 71045; 72125; 80053; 80307; 80329; 81001; 82803; 83605; 84484; 85025; 85610; 85730; 87040; 87086; 93005; 94003; 96365; 96367; 96368; 96375; 96376; 99251; 99285; J7030; A4216; G0463; G0480